=== PATIENT | female | born 1975 | race Caucasian/White ===

== ENCOUNTER 2025-03-19 08:46 | Emergency (ER) | payer MEDICAID ==
[~2025-03-19] VITALS: Ht 154.9 cm; Wt 104.0 kg
[2025-03-19 11:07] LABS: PLATELET COUNT (AUTO) 228 K/uL (150-450); RED BLOOD CELL COUNT(AUTO) 4.47 MIL/uL (4.00-5.20); RED CELL DISTRIBUTION WIDTH 13.3 % (11.5-14.5); WHITE BLOOD COUNT (AUTO) 6.7 K/uL (4.5-11.0)
[2025-03-19 11:13] LABS: CALCIUM, TOTAL 8.2 mg/dL (8.8-10.5); CREATININE 0.76 mg/dL (0.60-1.30); GLOMERULAR FILTR. RATE CALC > 60 mL/min (>60); GLUCOSE,RANDOM 98 mg/dL (70-110); SODIUM SERUM 138 mmol/L (136-145); UREA NITROGEN, BLOOD 11 mg/dL (7-18)
[2025-03-19] MEDS: KETOROLAC TROMETHAMINE 60 MG/2 ML VIAL IM ONE (11:14)
[2025-03-19] MEDS: OxyCODONE HCL/ACETAMINOPHEN 5-325 MG TABLET PO ONE (12:39)
[2025-03-19 13:37] VITALS: BP 120/75; PULSE 48; RESP 18; TEMP 97.905272; O2SAT 100
[2025-03-19] MEDS ORDERED: IBUP-1492 PO (13:50)
[2025-03-19] MEDS ORDERED: PERCT PO (13:50)
[2025-03-19] MEDS ORDERED: AMLO-257 PO (13:50)
[2025-03-19] MEDS ORDERED: METH-659 PO (13:50)
== END 2025-03-19 14:04 | disposition home or self-care (01) ==
LOC: EMS 08:46
DX: I10 Essential (primary) hypertension (principal); R51.9 Headache, unspecified; Z79.899 Other long term (current) drug therapy
CPT/HCPCS: 99285; 70450; 80048; 85025; 36415; 96372; J1885